=== PATIENT | female | born 1935 | race Caucasian/White ===

== ENCOUNTER 2017-05-04 07:11 | Emergency (ER) | payer MEDICARE, BC ==
[2017-05-04 07:34] VITALS: RESP 20; TEMP 97.9
[2017-05-04] MEDS ORDERED: METOPROLOL TARTRATE 25 MG TAB PO ONE (08:01)
[2017-05-04] MEDS ORDERED: LORAZEPAM 0.5 MG TAB PO ONE (08:01)
[2017-05-04] MEDS ORDERED: LORAZEPAM 0.5 MG TAB ONE (08:05)
[2017-05-04] MEDS ORDERED: METOPROLOL TARTRATE 25 MG TAB ONE (08:05)
[2017-05-04] MEDS ORDERED: AMLODIPINE 5 MG TAB ONE (08:06)
[2017-05-04] MEDS ORDERED: AMLODIPINE 5 MG TAB PO SCH (08:15)
[2017-05-04 08:48] VITALS: BP 157/91; PULSE 77; O2SAT 97
== END 2017-05-04 08:35 | disposition home or self-care (01) | DRG 880 ==
LOC: ED 07:11
DX: F41.9 Anxiety disorder, unspecified (principal); M43.6 Torticollis
CPT/HCPCS: 99283; 99284